=== PATIENT | male | born 1985 | race Caucasian/White ===

== ENCOUNTER 2018-08-04 04:42 | Emergency (ER) | payer OTHER ==
[~2018-08-04] VITALS: Ht 172.7 cm; Wt 70.5 kg
[2018-08-04] MEDS ORDERED: MIRT15 PO (04:54)
[2018-08-04] MEDS ORDERED: ONDA4 PO (04:54)
[2018-08-04] MEDS ORDERED: HYDR-4031 PO (04:54)
[2018-08-04 08:07] VITALS: BP 129/77
== END 2018-08-04 08:10 | disposition home or self-care (01) ==
LOC: EMS 04:43
DX: F10.20 Alcohol dependence, uncomplicated (principal); F15.10 Other stimulant abuse, uncomplicated; F17.210 Nicotine dependence, cigarettes, uncomplicated
CPT/HCPCS: 99406